=== PATIENT | male | born 1945 | race Caucasian/White ===

== ENCOUNTER 2020-04-28 09:39 | Emergency (ER) | payer MEDICARE, OTHER ==
--- NOTE | 2020-04-28 09:47 | EDM.PDOC ---
ED HPI GENERAL MEDICAL PROBLEM - General Chief Complaint: Skin Complaint Stated Complaint: SHOULDER PAIN Time Seen by Provider: 04/28/20 09:46 Source of Information: Reports: Patient History Limitations: Reports: No Limitations - History of Present Illness INITIAL COMMENTS - FREE TEXT/NARRATIVE: ROS: A 10-point review of systems, other than pertinent positives and negatives as stated per HPI, is otherwise negative PHYSICAL EXAM General: AOx4, GCS = 15, No distress HEENT: dry mucous membrane Neck: supple, no meningismus, no Kernig or Brudzinski Cardiac: S1S2 RRR Respiratory: CTAB, no crackles or rales, no wheezing Abdomen: Soft, nontender, no rebound or guarding, nondistended, no pulsatile mass. Back: nontender Musculoskeletal: NVI distally, no deformity Neuro: No focal deficits, CN 2 - 12 WNL. MEDICAL DECISION MAKING: I reviewed the patients past medical records, lab and radiographic findings. I discussed the case with family members. My differential diagnosis included: Onset: Today - Related Data Allergies Allergy/AdvReac Type Severity Reaction Status Date / Time No Known Allergies Allergy Verified 05/09/18 15:07 Home Meds: Home Meds Ascorbic Acid [Vitamin C] 1 tab PO DAILY 10/20/15 [History] Fish Oil/[place]-3 Fatty Acids [Fish Oil 1,000 MG] 1 tab PO DAILY 10/20/15 [ History] Niacin 1 tab PO DAILY 10/20/15 [History] Simvastatin [Zocor] 20 mg PO DAILY 10/20/15 [History] Tadalafil [Cialis] 20 tab PO DAILY PRN 10/20/15 [History] Vitamin B Complex 1 tab PO DAILY 10/20/15 [History] Vitamin E 1 tab PO DAILY 10/20/15 [History] Past Medical History Cardiovascular History: Reports: High Cholesterol Oncologic (Cancer) History: Reports: Prostate - Past Surgical History GI Surgical History: Reports: Hernia, Inguinal Other Male Surgeries/Procedures: hx radical retropubic prostatectomy Social & Family History - Caffeine Use Caffeine Use: Reports: Coffee, Soda ED ROS GENERAL - Review of Systems Review Of Systems: See Below (see dictation) ED EXAM, SKIN/RASH Exam: See Below (see dictation) Departure - Departure Condition: Good - Discharge Information Referrals: Rd Rojas MD [Primary Care Provider] -
[2020-04-28] MEDS ORDERED: valACYclovir 500 MG Tab PO ONE (10:21)
--- NOTE | 2020-04-28 10:21 | EDM.PDOC ---
ED HPI GENERAL MEDICAL PROBLEM - General Chief Complaint: Skin Complaint Stated Complaint: SHOULDER PAIN Time Seen by Provider: 04/28/20 09:46 Source of Information: Reports: Patient History Limitations: Reports: No Limitations - History of Present Illness INITIAL COMMENTS - FREE TEXT/NARRATIVE: HISTORY AND PHYSICAL: History of present illness: Patient is a 75-year-old male who presents to the emergency room with complaints of left arm pain. He states approximately 1 week ago he had been shoveling, but alternating arms. His left arm was sore while at rest and felt improved when he was active. The next day he had noticed a rash to his left shoulder that has progressively wrapped around his left arm down into his wrist. He denies any recent illness. He is not immunocompromised. Other than the pain in his arm he offers no other complaints. Patient denies any fever, chills, headache, change in vision, syncope or near syncope. Denies any chest pain, back pain, shortness of breath or cough. Denies any GI or symptoms. Patient has been eating and drinking appropriately. Review of systems: As per history of present illness and below otherwise all systems reviewed and negative. Past medical history: As per history of present illness and as reviewed below otherwise noncontributory. Surgical history: As per history of present illness and as reviewed below otherwise noncontributory. Social history: See social history for further information Family history: As per history of present illness and as reviewed below otherwise noncontributory. Physical exam: General: Well-developed and well-nourished 75-year-old male. HEENT: Atraumatic, normocephalic, pupils equal and reactive bilaterally, negative for conjunctival pallor or scleral icterus, mucous membranes moist, TMs normal bilaterally. No vesicular lesions in the ear, throat or near the face or eyes. Throat clear, neck supple, nontender, trachea midline. No drooling or trismus noted. No meningeal signs. No hot potato voice noted. Lungs: Clear to auscultation, breath sounds equal bilaterally, chest nontender. Heart: S1S2, regular rate and rhythm without overt murmur Abdomen: Soft, nondistended, nontender. Negative for masses or hepatosplenomegaly. Negative for costovertebral tenderness. Pelvis: Stable nontender. Skin: Patient has a vesicular herpetic type rash to his right upper extremity. Extremities: Atraumatic, moves all extremities per self without difficulty or deficits, negative for cords or calf pain. Neurovascular unremarkable. Neuro: Awake, alert, oriented. Cranial nerves II through XII unremarkable. Cerebellum unremarkable. Motor and sensory unremarkable throughout. Exam nonfocal. Notes: Patient appears to have a herpes zoster outbreak on his left arm. He does see Dr. Sims, I encouraged him to follow-up just for reevaluation. We discussed medication, follow-up and supportive care measures were reviewed and discussed. Voices understanding and is agreeable to plan of care. Denies any further questions or concerns at this time. Diagnostics: None Therapeutics: Valcyclovir Prescription: Valcyclovir Impression: Shingles Plan: 1. Keep the skin clean and dry. Continue to monitor the site for signs of improvement. Make sure you are keeping the area covered when you are around small children or women as this is contagious. Make sure you wash your hands regularly. If you should notice the shingles rash to your face or near your eye sure you follow-up with ophthalmology immediately. 2. You can alternate Tylenol and ibuprofen as needed. You can take the tramadol for moderate to severe pain. This medication may cause drowsiness so do not take it while driving or needing to be functioning outside of the house. You may want to reserve this medication for nighttime use. 3. Please follow-up with Dr. Rojas for reevaluation as we discussed. Return to the ED as needed and as discussed. Definitive disposition and diagnosis as appropriate pending reevaluation and review of above. left shoulder Pain Score (Numeric/FACES): 5 - Related Data Allergies Allergy/AdvReac Type Severity Reaction Status Date / Time No Known Allergies Allergy Verified 04/28/20 09:54 Home Meds: Home Meds Ascorbic Acid [Vitamin C] 1 tab PO DAILY 10/20/15 [History] Fish Oil/[place]-3 Fatty Acids [Fish Oil 1,000 MG] 1 tab PO DAILY 10/20/15 [ History] Niacin 1 tab PO DAILY 10/20/15 [History] Simvastatin [Zocor] 20 mg PO DAILY 10/20/15 [History] Tadalafil [Cialis] 20 tab PO DAILY PRN 10/20/15 [History] Vitamin B Complex 1 tab PO DAILY 10/20/15 [History] Vitamin E 1 tab PO DAILY 10/20/15 [History] traMADol [Ultram] 50 mg PO Q4H PRN #15 tab 04/28/20 [Rx] valACYclovir [Valtrex] 1,000 mg PO TID 7 Days #21 tab 04/28/20 [Rx] Past Medical History Cardiovascular History: Reports: High Cholesterol Oncologic (Cancer) History: Reports: Prostate - Past Surgical History GI Surgical History: Reports: Hernia, Inguinal Male Surgical History: Reports: Other (See Below) Other Male Surgeries/Procedures: hx radical retropubic prostatectomy Musculoskeletal Surgical History: Reports: Knee Replacement, Other (See Below) Other Musculoskeletal Surgeries/Procedures:: Left Knee Social & Family History - Tobacco Use Smoking Status *Q: Never Smoker - Caffeine Use Caffeine Use: Reports: Coffee, Soda - Recreational Drug Use Recreational Drug Use: No ED ROS GENERAL - Review of Systems Review Of Systems: Comprehensive ROS is negative, except as noted in HPI. ED EXAM, SKIN/RASH Exam: See Below (See dictation) Course - Vital Signs Last Recorded V/S: Last Vital Signs Temp 96.7 F L 04/28/20 09:51 Pulse 77 04/28/20 09:51 Resp 16 04/28/20 09:51 BP 131/77 04/28/20 09:51 Pulse Ox 95 04/28/20 09:51 - Orders/Labs/Meds Meds: Medications Discontinued Medications Generic Name Dose Route Start Last Admin Trade Name Freq PRN Reason Stop Dose Admin Valacyclovir HCl 1,000 mg 04/28/20 10:21 Valtrex PO 04/28/20 10:22 ONETIME ONE Departure - Departure Time of Disposition: 10:21 Disposition: Home, Self-Care 01 Clinical Impression: Shingles Qualifiers: Herpes zoster complications: without complications Qualified Code(s): B02.9 - Zoster without complications - Discharge Information Prescriptions: traMADol [Ultram] 50 mg PO Q4H PRN #15 tab PRN Reason: Pain valACYclovir [Valtrex] 1,000 mg PO TID 7 Days #21 tab Instructions: Shingles, [id number] Referrals: Rd Rojas MD [Primary Care Provider] - Forms: ED Department Discharge Additional Instructions: The following information is given to patients seen in the emergency department who are being discharged to home. This information is to outline your options for follow-up care. We provide all patients seen in our emergency department with a follow-up referral. The need for follow-up, as well as the timing and circumstances, are variable depending upon the specifics of your emergency department visit. If you don't have a primary care physician on staff, we will provide you with a referral. We always advise you to contact your personal physician following an emergency department visit to inform them of the circumstance of the visit and for follow-up with them and/or the need for any referrals to a consulting specialist. The emergency department will also refer you to a specialist when appropriate. This referral assures that you have the opportunity for follow-up care with a specialist. All of these measure are taken in an effort to provide you with optimal care, which includes your follow-up. Under all circumstances we always encourage you to contact your private physician who remains a resource for coordinating your care. When calling for follow-up care, please make the office aware that this follow-up is from your recent emergency room visit. If for any reason you are refused follow-up, please contact the [facility] Emergency Department at and asked to speak to the emergency department charge nurse. [facility] [address] [place], [place] [id number] [facility] [address] [place] [id number] 1. Keep the skin clean and dry. Continue to monitor the site for signs of improvement. Make sure you are keeping the area covered when you are around small children or women as this is contagious. Make sure you wash your hands regularly. If you should notice the shingles rash to your face or near your eye sure you follow-up with ophthalmology immediately. 2. You can alternate Tylenol and ibuprofen as needed. You can take the tramadol for moderate to severe pain. This medication may cause drowsiness so do not take it while driving or needing to be functioning outside of the house. You may want to reserve this medication for nighttime use. 3. Please follow-up with Dr. Rojas for reevaluation as we discussed. Return to the ED as needed and as discussed. Sepsis Event Note - Evaluation Sepsis Screening Result: No Definite Risk - Focused Exam Vital Signs: Vital Signs Temp Pulse Resp BP Pulse Ox 04/28/20 09:51 96.7 F L 77 16 131/77 95 Date Exam was Performed: 04/28/20 Time Exam was Performed: 10:30
[2020-04-28 10:48] VITALS: BP 156/66; PULSE 67
== END 2020-04-28 10:42 | disposition home or self-care (01) ==
LOC: MW.ED 09:39
DX: B02.9 Zoster without complications (principal); E78.00 Pure hypercholesterolemia, unspecified; Z79.899 Other long term (current) drug therapy
CPT/HCPCS: 99283; A9270; 99282

== ENCOUNTER 2022-04-23 11:32 | Emergency (ER) | payer MEDICARE, OTHER ==
[2022-04-23 14:13] LABS: CARBON DIOXIDE,CO2 24.1 mmol/L (21.0-32.0); POTASSIUM,K 3.9 mmol/L (3.5-5.1)
[2022-04-23] MEDS ORDERED: Iopamidol 755 MG/ML 500 ML Multipack Bottle IVPUSH ONE (14:37)
[2022-04-23] MEDS ORDERED: Tamsulosin 0.4 MG Cap.ER PO STA (15:53)
[2022-04-23 16:38] VITALS: BP 121/83; PULSE 78
== END 2022-04-23 16:35 | disposition home or self-care (01) ==
LOC: MW.ED 11:32
DX: N13.2 Hydronephrosis with renal and ureteral calculous obstruction (principal); K59.00 Constipation, unspecified; E78.00 Pure hypercholesterolemia, unspecified; Z79.899 Other long term (current) drug therapy
CPT/HCPCS: 36415; 74018; 74177; 80053; 81001; 83690; 85025; 99284; A9270; Q9967